=== PATIENT | male | born 1970 | race Native Hawaiian/Other Pacific Islander ===

== ENCOUNTER 2022-07-07 10:27 | Outpatient (CLI) | payer OTHER | END 2022-07-07 18:59 | disposition home or self-care (01) | LOC: RAD 10:27 | PROVIDERS: ATTEND Nurse Practitioner | DX: M79.672 Pain in left foot (principal) ==

== ENCOUNTER 2023-04-19 08:03 | Emergency (ER) | payer OTHER ==
[~2023-04-19] VITALS: Ht 182.9 cm; Wt 106.6 kg
[2023-04-19 08:40] LABS: PLATELET COUNT 285 K/uL (142-355)
[2023-04-19 11:50] VITALS: BP 122/77; TEMP 97.8
== END 2023-04-19 11:50 | disposition short-term general hospital (02) ==
LOC: ED 08:03
PROVIDERS: Family Medicine
DX: N20.0 Calculus of kidney (principal); R10.31 Right lower quadrant pain
CPT/HCPCS: 36415; 80053; 81000; 83690; 85027; 96361; 96374; 96375; 96376; 99284; J1170; J1885; J2270; J2405; J3490; Q9963